=== PATIENT | male | born 1960 | race Caucasian/White ===

== ENCOUNTER 2023-07-13 11:01 | Outpatient (CLI) | payer MEDICARE, SELFPAY ==
[2023-07-13 11:40] LABS: Basophils Percent Auto 0.6 % (0.2-1.2); Eosinophils Absolute Auto 0.1 K/mm3 (0-0.3); Eosinophils Percent Auto 1.6 % (0-4.4); Hemoglobin 16.9 g/dL (14.0-18.0); Immature Granulocyte Absolute 0.03 K/mm3 (0.00-0.031); Immature Granulocyte Percent A 0.4 % (0-0.5); Lymphocytes Absolute Auto 1.15 K/mm3 (0.9-3.2); Lymphocytes Percent Auto 16.5 % (18.3-44.2); Mean Corpuscular HGB Conc 32.5 g/dl (32-36); Mean Corpuscular Hemoglobin 31.2 pg (26-34); Mean Corpuscular Volume 96.1 fl (80-100); Mean Platelet Volume 10.2 fl (7.4-10.4); Monocytes Absolute Auto 0.4 K/mm3 (0.1-0.6); Monocytes Percent Auto 5.9 % (2.6-8.5); Neutrophils Absolute Auto 5.3 K/mm3 (1.3-6.7); Platelet Count Result 176 k/mm3 (150-375); Red Blood Count 5.41 M/mm3 (4.6-6.20); Red Cell Distribution Width 12.1 % (11.5-14.5)
[2023-07-13 12:15] LABS: Alanine Aminotransferase 22 U/L (6-50); Albumin Level 4.9 g/dL (3.5-5.1); Alkaline Phosphatase 85 U/L (38-126); Anion Gap 7 mmol/L (4-12); Aspartate Amino Transferase 34 U/L (17-59); Bilirubin,Total 1.1 mg/dL (0.2-1.3); Blood Urea Nitrogen 23 mg/dL (9-20); Calcium 9.7 mg/dL (8.4-10.2); Carbon Dioxide 29 mmol/L (22-30); Chloride 104 mmol/L (98-107); Estimated Glomerular Filt Rate > 60; Glucose 119 mg/dL (65-110); Potassium 4.1 mmol/L (3.4-5.0); Sodium 140 mmol/L (137-145)
[2023-07-16 11:48] LABS: Erythropoietin (EPO) 4.8 mIU/mL (2.6-18.5)
[2023-07-18 13:42] LABS: Block/Specimen ID Not Given; CALR Exon 9 Mutation Not Detected (Not Detected); CSF3R Exon 14/17 Mutation Not Detected (Not Detected); JAK2 Exon 12 Mutation Not Detected (Not Detected); JAK2 V617F Mutation Not Detected (Not Detected); MPL Exon 10 Mutation Not Detected (Not Detected); Specimen Source Blood
== END 2023-07-13 11:02 | disposition home or self-care (01) ==
PROVIDERS: Visit Provider Internal Medicine Hematology & Oncology
DX: D75.1 Secondary polycythemia (principal)
CPT/HCPCS: 36415; 80053; 81219; 81270; 81279; 81339; 81479; 82668; 85025; 85055

== ENCOUNTER 2023-11-03 13:01 | Outpatient (CLI) | payer MEDICARE, SELFPAY ==
[2023-11-03 13:18] LABS: Basophils Percent Auto 0.6 % (0.2-1.2); Eosinophils Absolute Auto 0.2 K/mm3 (0-0.3); Eosinophils Percent Auto 3.6 % (0-4.4); Hematocrit 46.5 % (42.0-52.0); Hemoglobin 15.7 g/dL (14.0-18.0); Immature Granulocyte Absolute 0.01 K/mm3 (0.00-0.031); Immature Granulocyte Percent A 0.1 % (0-0.5); Lymphocytes Absolute Auto 2.01 K/mm3 (0.9-3.2); Lymphocytes Percent Auto 29.8 % (18.3-44.2); Mean Corpuscular HGB Conc 33.8 g/dl (32-36); Mean Corpuscular Hemoglobin 31.1 pg (26-34); Mean Corpuscular Volume 92.1 fl (80-100); Mean Platelet Volume 8.8 fl (7.4-10.4); Monocytes Absolute Auto 0.5 K/mm3 (0.1-0.6); Monocytes Percent Auto 7.7 % (2.6-8.5); Neutrophils Absolute Auto 3.9 K/mm3 (1.3-6.7); Neutrophils Percent Auto 58.2 % (45.5-73.1); Platelet Count Result 241 k/mm3 (150-375); Red Blood Count 5.05 M/mm3 (4.6-6.20); Red Cell Distribution Width 12.8 % (11.5-14.5); White Blood Count 6.8 K/mm3 (4.5-10.0)
[2023-11-03 13:22] LABS: Blood Urea Nitrogen 20 mg/dL (8-26); Carbon Dioxide 29 mmol/L (22-30); Chloride 102 mmol/L (98-109); Estimated Glomerular Filt Rate > 60; Glucose 92 mg/dL (70-105); Ionized Calcium (POC) 1.12 mmol/L (1.11-1.31); Potassium 3.8 mmol/L (3.5-4.9); Sodium 140 mmol/L (138-146)
== END 2023-11-03 13:02 | disposition home or self-care (01) ==
LOC: ANHLAB 13:03
PROVIDERS: PCP Internal Medicine; Visit Provider Internal Medicine Hematology & Oncology
DX: D75.1 Secondary polycythemia (principal)
CPT/HCPCS: 36415; 80047; 85025

== ENCOUNTER 2024-05-09 15:16 | Outpatient (CLI) | payer MEDICARE, SELFPAY ==
--- OUTSIDE RECORDS SUMMARY | 2024-05-09 15:20 | XMS_ITS | Clinical Summary ---
Author Organization [facility] Nicolette jang [facility] Address [address] [place] [address] Care Team Providers Care Filterer Name Role Phone Joanna Banks MD Primary Care Provider Allergies No known active allergies Medications atorvastatin (LIPITOR) 20 mg tablet Take 20 mg by mouth daily. Active Active Problems No known active problems Encounters Date Type Department Care Team Description 02/07/2024 External Device Data [facility] ABSTRACTION Provider, Abstract from Last 3 Months Family History Medical History Relation Name Comments Diabetes Mother Relation Name Status Comments Father Alive Mother Sister Alive Social History Tobacco Use Types Packs/Day Years Used Date Smoking Tobacco: Never Smokeless Tobacco: Never Alcohol Use Standard Drinks/Week Comments Never 0 (1 standard drink = 0.6 oz pur e alcohol) Sex and Gender Information Value Date Recorded Sex Assigned at Not on file Legal Sex Male 1:01 PM CDT Gender Identity Not on file Sexual Orientation Not on file Last Filed Vital Signs Vital Sign Reading Time Taken Comments Blood Pressure 137/80 11/03/2023 1:23 PM CDT Pulse 70 11/03/2023 1:23 PM CDT Temperature 36.6 ??C (97.8 ??F) 11/03/2023 1:19 PM CD T Respiratory Rate 18 11/03/2023 1:19 PM CDT Oxygen Saturation 97% 11/03/2023 1:19 PM CDT Inhaled Oxygen Concentration - - Weight 64.7 kg (142 lb 9.6 oz) 11/03/2023 1:19 P M CDT Height 170.2 cm (5' 7 ) 07/13/2023 10:08 AM CDT Body Mass Index 22.33 07/13/2023 10:08 AM CDT Plan of Treatment Upcoming Encounters Date Type Department Care Team (Late st Contact Info) Description 05/09/2024 3:30 PM ACCOUNT SERVICES COORDINATOR Office Visit [facility] Oncology and Hematology - [address] [facility] [address] [place] [address] Héctor Mitchell MD [address] [place] [address] Health Maintenance Due Date Last Done Comments DIABETES ANNUAL FOOT EXAM 1976 DIABETES ANNUAL RETINAL EXAM 1976 DIABETES HBA1C Q 6 MONTHS 1976 DIABETES MICROALBUMIN ANNUAL SCREEN 1976 LDL CHOLESTEROL ANNUAL 1976 DTAP/TDAP/TD VACCINES (1 - Tdap) 1977 PNEUMOCOCCAL VACCINE 65+ YEARS (1 of 2 - PCV) 04/24/18 78 COLORECTAL SCREENING 2003 Colorectal Cancer Screening 2003 FIT-DNA Q 3 years 2003 FIT/FOBT Q 1 year 2003 Flex Sig/CT Colonography Q 5 years 2003 ZOSTER VACCINE (1 of 2) 2008 INFLUENZA VACCINE (#1) 2023 [place] Prev entative Visit/Annual Wellness Visit 04/05/2024 RSV VACCINE (60+ or ) (1 - 1-dose 75+ series) 2033 Insurance [id number] [address] [id number] [facility] Address: [facility] [address] [place] [address] Care Teams Filterer Relationship Specialty Start Date End Date Joanna Banks MD PCP - General Internal Medicine 06/16/23
--- OUTSIDE RECORDS SUMMARY | 2024-05-09 15:21 | XMS_ITS | Data Portability ---
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 Specimen sent to pathology. RTC In 10-14 days for suture removal. Patient agreeable. [email or web address] Not available 01/12/2023 12:45:59 01/28/2023 01/28/2023 status post scalp lesion excision. Benign pathology . Sutures removed. Follow up p.r.n. [email or web address] Not available 01/28/2023 10:32:20 06/10/2023 06/10/2023 12/17/2022: PSA 1.11 Not available 06/10/2023 10:26:30 12/21/2023 12/21/2023 12/17/2022: PSA 1.11 11/03/2023: Dr Paula [email or web address] Not available 12/21/2023 10:58:44 04/25/2024 04/25/2024 12/17/2022: PSA 1.11 11/03/2023: Dr Mitchell 04/18/2024: A1C 5.7 Not available 04/25/2024 10:34:11 Plan of Treatment Reminders Order Date Submit Date Provider Last Modified By Organization Details Last Modified Time Details Appointments Any 15 2024 09:45A M Elma hooker MD Not available Not available Not available Lab vitamin D, 25-hydrox y, total, serum [address] (Lab), [address] [place], [address], 06/17/2023 11:31:10 glycohemo globin, total, blood 2023 024 [facility] (Lab), [address] [place], [address], 06/10/2023 14:59:30 microalbu min, urine 2023 024 [facility] (Lab), [address] [place], [address], 06/10/2023 14:22:04 lipid panel, serum 2023 024 [facility] (Lab), [address] [place], [address], 06/10/2023 14:46:27 CBC w/ auto diff 2023 024 [facility] (Lab), [address] [place], [address], 06/10/2023 13:25:16 CMP, serum or plasma 2023 024 [facility] (Lab), [address] [place], [address], 06/10/2023 14:46:33 TSH, serum or plasma 2023 024 [facility] (Lab), [address] [place], [address], 06/10/2023 15:59:48 urinalysi s, complete [address] (Lab), [address] [place], [address], 06/17/2023 11:31:10 vitamin D, 25-hydrox y, total, serum [address] (Lab), [address] [place], [address], 01/12/2024 13:56:21 glycohemo globin, total, blood [address] (Lab), [address] [place], [address], 01/12/2024 13:56:30 microalbu min, urine [address] (Lab), [address] [place], [address], 01/12/2024 13:56:50 noninvasi ve colorecta l cancer DNA + occult blood screening , QL, stool 2023 024 [facility] (Cologuard Orders Only), [address], [address], [place], [address], 01/12/2024 19:52:29 lipid panel, serum [address] (Lab), [address] [place], [address], 01/12/2024 13:55:34 CBC w/ auto diff [address] (Lab), [address] [place], [address], 01/12/2024 13:55:47 CMP, serum or plasma [address] (Lab), [address] [place], [address], 01/12/2024 13:56:01 TSH, serum or plasma [address] (Lab), [address] [place], [address], 01/12/2024 13:56:10 vitamin D, 25-hydrox y, total, serum [address] (Lab), [address] [place], [address], 04/25/2024 11:00:17 glycohemo globin, total, blood [address] (Lab), [address] [place], [address], 04/25/2024 11:00:17 microalbu min, urine [address] (Lab), [address] [place], [address], 04/25/2024 11:00:17 lipid panel, serum [address] (Lab), [address] [place], [address], 04/25/2024 11:00:16 CBC w/ auto diff [address] (Lab), [address] [place], [address], 04/25/2024 11:00:16 CMP, serum or plasma [address] (Lab), [address] [place], [address], 04/25/2024 11:00:16 TSH, serum or plasma [address] ([facility]), [address] [facility] [place], [address], 04/25/2024 11:00:16 Referral diabetic ophthalmo logy referral - Please call patient to schedule. 2024 025 [facility], [address], [place], [address], 04/25/2024 16:50:27 podiatris t referral - Please call patient to schedule. 2024 025 [email or web address] Gerardo Sanchezcamille DPM, [address], [address], [place], [address], 04/25/2024 16:29:23 Procedures None recorded. Surgeries None recorded. Imaging None recorded. Medication Orders None recorded. Patient TargetsNo targets recorded. Patient Instructions Encounter Date Encounter Id Patient Instructions Last Modified By Organization Details Last Modified Time 12/21/2023 [id number] dementia rating scale-2* [email or web address] Not available 12/21/2023 11:18:46 alcohol misuse* [email or web address] Not available 12/21/2023 11:18:57 depression screening* [email or web address] Not available 12/21/2023 11:19:18 multi-dimensiona l health assessment questionnaire* [email or web address] Not available 12/21/2023 11:18:08 advance directiv es: care instructions [email or web address] Not available 12/21/2023 10:53:38 [place] Advance Directives [email or web address] Not available 12/21/2023 10:53:37 advance care planning: care instructions [email or web address] Not available 12/21/2023 10:53:38 Personalized [facility] Plan and Screening Recommendations Advance Directives - Do you have one? No You have indicated that you are capable of preparing your advance care directive Advance Directives - Do we have your advance directive on file in your health record? Primary Prevention/Interven tion (prevents or decreases the chance of common diseases from occurring) Smoking Risk: Non Smoker Alcohol Misuse Screening: Negative Weight: Appropriate Physical activity: Need more exercise/physical activity minimum of 10-20 minutes of activity that causes mild breathlessness/day minimum of 20-30 minutes activity that causes mild breathlessness/day Nutrition: Good Average Refer to attached handout Heart-Healthy Diet: After Your Visit Fall Risk (screened today): Low Refer to attached handout Preventing Falls: After your Visit Vaccines Pneumococcal: Ordered Recommended today Influenza: Your next one in the fall of this year Chronic Disease Risks Stroke: Low Risk Intermediate Risk Heart Attack: Low risk Intermediate Risk Clogging of the Arteries: Low risk Intermediate Risk Diabetes: High Risk Active diagnosis, Continue current treatment plan Secondary Prevention/Interven tion (detects treatable diseases before they may cause symptoms, disability, or ) Prostate Cancer Screening: Colon Cancer Screening: Colonoscopy Fecal Occult Blood Cologuard (DNA stool test) Date Screening Last Performed: 2020 Eye Disease Screening: Ordered Recommended today Dementia Risk: Low I have no recommendations Depression Screening: Negative [email or web address] Not available 12/21/2023 11:21:17 Reason for Referral Diabetic Ophthalmology Refer ral for Prediabetes Please call patient to schedule. Referring Physician: Elma Banks Internal Medicine, Encounter Date: 04/25/2024 [place] [employer] Referral for Pred iabetes Please call patient to schedule. Referring Physician: Elma Banks Internal Medicine, Encounter Date: 04/25/2024 Results Created Date Observation Date Name Description Value Unit Range Abnormal Flag Note LastModifiedBy Organization Detail LastModifiedTime 12/18/1912/17/2022 CBC/C OMPLE TE BLD COUNT W/DIF F white blood cells 6.5 x10'3 /uL 4.2-10 .8 Not Available [facility] (Lab) [address] [place], [address], 12/17/2022 12:31:23 12/18/19 23 12/17/2022 CBC/C OMPLE TE BLD COUNT W/DIF F red blood cells 5.30 x10'6 /uL 4.10-5 .80 Not Available [facility] (Lab) [address] [place], [address], 12/17/2022 12:31:23 09/12/17/2022 CBC/C OMPLE TE BLD COUNT W/DIF F hemoglobin 16.6 g/dL 13.2-1 7.0 Not Available [facility] (Lab) [address] [place], [address], 12/17/2022 12:31:23 12/18/19 23 12/17/2022 CBC/C OMPLE TE BLD COUNT W/DIF F hematocrit 48.6 % 39.3-5 0.0 Not Available [facility] (Lab) [address] [place], [address], 12/17/2022 12:31:23 12/18/1912/17/2022 CBC/C OMPLE TE BLD COUNT W/DIF F mean red cell volume 91.7 fL 80.0-9 7.0 Not Available [facility] (Lab) [address] [place], [address], 12/17/2022 12:31:23 12/18/1912/17/2022 CBC/C OMPLE TE BLD COUNT W/DIF F mean red cell hemoglobin 31.3 pg 27.0-3 3.0 Not Available [facility] (Lab) [address] [place], [address], 12/17/2022 12:31:23 12/18/1912/17/2022 CBC/C OMPLE TE BLD COUNT W/DIF F mean RBC HGB concentratio n 34.2 g/dL 31.0-3 6.0 Not Available [facility] (Lab) [address] [place], [address], 12/17/2022 12:31:23 12/18/1912/17/2022 CBC/C OMPLE TE BLD COUNT W/DIF F red cell distribution width 12.3 % 11.8-1 5.5 Not Available [facility] (Lab) [address] [place], [address], 12/17/2022 12:31:23 12/18/1912/17/2022 CBC/C OMPLE TE BLD COUNT W/DIF F platelets 259 x10'3 /uL 150-40 0 Not Available [facility] (Lab) [address] [place], [address], 12/17/2022 12:31:23 12/18/1912/17/2022 CBC/C OMPLE TE BLD COUNT W/DIF F mean platelet volume 9.9 fL 9.0-12 .4 Not Available [facility] (Lab) [address] [place], [address], 12/17/2022 12:31:23 12/18/1912/17/2022 CBC/C OMPLE TE BLD COUNT W/DIF F neutrophils 70.1 % 39.0-7 2.0 Not Available [facility] (Lab) [address] [place], [address], 12/17/2022 12:31:23 12/18/1912/17/2022 CBC/C OMPLE TE BLD COUNT W/DIF F lymphocytes 20.5 % 16.0-4 7.0 Not Available [facility] (Lab) [address] [place], [address], 12/17/2022 12:31:23 12/18/1912/17/2022 CBC/C OMPLE TE BLD COUNT W/DIF F monocytes 6.7 % 5.0-12 .0 Not Available [facility] (Lab) [address] [place], [address], 12/17/2022 12:31:23 12/18/1912/17/2022 CBC/C OMPLE TE BLD COUNT W/DIF F eosinophils 2.2 % 1.0-7. 0 Not Available [facility] (Lab) [address] [place], [address], 12/17/2022 12:31:23 12/18/1912/17/2022 CBC/C OMPLE TE BLD COUNT W/DIF F basophils 0.3 % 0.0-2. 0 Not Available [facility] (Lab) [address] [facility], [address], 12/17/2022 12:31:23 12/18/1912/17/2022 CBC/C OMPLE TE BLD COUNT W/DIF F immature granulocytes 0.2 % 0.00-0 .50 Not Available [facility] (Lab) [address] [place], [address], 12/17/2022 12:31:23 12/18/1912/17/2022 CBC/C OMPLE TE BLD COUNT W/DIF F neutrophils, absolute count 4.53 x10'3 /uL 1.5-8. 0 Not Available [facility] (Lab) [address] [place], [address], 12/17/2022 12:31:23 12/18/1912/17/2022 CBC/C OMPLE TE BLD COUNT W/DIF F lymphocytes, absolute count 1.32 x10'3 /uL 1.07-3 .43 Not Available [facility] (Lab) [address] [place], [address], 12/17/2022 12:31:23 12/18/1912/17/2022 CBC/C OMPLE TE BLD COUNT W/DIF F monocytes, absolute count 0.43 x10'3 /uL 0.29-0 .99 Not Available [facility] (Lab) [address] [place], [address], 12/17/2022 12:31:23 12/18/1912/17/2022 CBC/C OMPLE TE BLD COUNT W/DIF F eosinophils, absolute count 0.14 x10'3 /uL 0.02-0 .53 Not Available [facility] (Lab) [address] [place], [address], 12/17/2022 12:31:23 12/18/19 23 12/17/2022 CBC/C OMPLE TE BLD COUNT W/DIF F basophils, absolute count 0.02 x10'3 /uL 0.01-0 .08 Not Available [facility] (Lab) [address] [place], [address], 12/17/2022 12:31:23 12/18/19 23 12/17/2022 CBC/C OMPLE TE BLD COUNT W/DIF F immature granulocytes ,absolute 0.01 x10'3 /uL 0.00-0 .05 Not Available [facility] (Lab) [address] [place], [address], 12/17/2022 12:31:23 12/18/19 23 12/17/2022 CBC/C OMPLE TE BLD COUNT W/DIF F nucleated red blood cells 0.0 % -0 Not Available [facility] (Lab) [address] [place], [address], 12/17/2022 12:31:23 12/18/19 23 12/17/2022 CBC/C OMPLE TE BLD COUNT W/DIF F NRBC# 0.00 x10'3 /uL Not Available [facility] (Lab) [address] [place], [address], 12/17/2022 12:31:23 12/18/1912/17/2022 COMPR EHENS RADHA METAB OLIC PANEL sodium 139 mmol/ L 137-14 5 Not Available [facility] (Lab) [address] [place], [address], 12/17/2022 12:59:17 12/18/19 23 12/17/2022 COMPR EHENS RADHA METAB OLIC PANEL potassium 4.3 mmol/ L 3.5-5. 1 Not Available [facility] (Lab) [address] [place], [address], 12/17/2022 12:59:17 12/18/1912/17/2022 COMPR EHENS RADHA METAB OLIC PANEL chloride 102 mmol/ L 98-107 Not Available [facility] (Lab) [address] [place], [address], 12/17/2022 12:59:17 12/18/19 23 12/17/2022 COMPR EHENS RADHA METAB OLIC PANEL carbon dioxide 28 mmol/ L 22-30 Not Available [facility] (Lab) [address] [place], [address], 12/17/2022 12:59:17 12/18/1912/17/2022 COMPR EHENS RADHA METAB OLIC PANEL anion gap 13.3 mmol/ L 14-22 low Not Available [facility] (Lab) [address] [place], [address], 12/17/2022 12:59:17 12/18/1912/17/2022 COMPR EHENS RADHA METAB OLIC PANEL glucose 115 mg/dL 70-99 high Not Available [facility] (Lab) [address] [place], [address], 12/17/2022 12:59:17 12/18/1912/17/2022 COMPR EHENS RADHA METAB OLIC PANEL BUN 20 mg/dL 8-19 high Not Available [facility] (Lab) [address] [place], [address], 12/17/2022 12:59:17 12/18/1912/17/2022 COMPR EHENS RADHA METAB OLIC PANEL creatinine 0.95 mg/dL 0.66-1 .25 Not Available [facility] (Lab) [address] [place], [address], 12/17/2022 12:59:17 12/18/19 23 12/17/2022 COMPR EHENS RADHA METAB OLIC PANEL GFR >60 Refer ence Range : [place] ge GFR Healt hy Adult : >60 mL/mi n/1.7 3 m2 Chron ic Kidne y Disea se: 15-60 mL/mi n/1.7 3 m2 Kidne y Failu re: <15/m L/min /1.73 m2 www.n iddk. nih.g ov The MDRD study equat ion has not been valid ated in child claudia <18 years of age; pregn ant women ; the elder ly >85 years of age; or in some racia l or ethni c subgr oups, such as Hispa nics. Outsi de the valid ated kelly eters , estim ated GFR is less accur ate, requi ring clini chacha judgm ent on a case- by-ca se basis . Clini chacha inter preta tion for other races and ages must be made by the clini darwin. The MDRD study equat ion has not been valid ated for the evalu ation of serum creat inine relat ed to nutri bernarda l statu s or medic ation usage . For perso ns <18 years of age, a pedia tric GFR calcu lator is avail able on the [facility] websi te: https ://anival rondon.[address]/diomedes coleyess ional s/kdo qi/gf r_cal culat or Not Available [facility] (Lab) [address] [place], [address], 12/17/2022 12:59:17 12/18/1912/17/2022 COMPR EHENS RADHA METAB OLIC PANEL alkaline phosphatase 84 U/L 38-126 Not Available [facility] (Lab) [address] [place], [address], 12/17/2022 12:59:17 12/18/1912/17/2022 COMPR EHENS RADHA METAB OLIC PANEL alanine aminotransfe rase 32 U/L 0-50 Not Available [facility] (Lab) [address] [place], [address], 12/17/2022 12:59:17 12/18/19 23 12/17/2022 COMPR EHENS RADHA METAB OLIC PANEL aspartate aminotransfe rase 35 U/L 15-46 Not Available [facility] (Lab) [address] [place], [address], 12/17/2022 12:59:17 12/18/19 23 12/17/2022 COMPR EHENS RADHA METAB OLIC PANEL bilirubin, total 1.00 mg/dL 0.20-1 .30 Not Available [facility] (Lab) [address] [place], [address], 12/17/2022 12:59:17 12/18/1912/17/2022 COMPR EHENS RADHA METAB OLIC PANEL calcium 9.7 mg/dL 8.4-10 .2 Not Available [facility] (Lab) [address] [place], [address], 12/17/2022 12:59:17 12/18/19 23 12/17/2022 COMPR EHENS RADHA METAB OLIC PANEL total protein 7.8 g/dL 6.3-8. 2 Not Available [facility] (Lab) [address] [place], [address], 12/17/2022 12:59:17 12/18/1912/17/2022 COMPR EHENS RADHA METAB OLIC PANEL albumin 4.7 g/dL 3.0-4. 4 high Not Available [facility] (Lab) [address] [place], [address], 12/17/2022 12:59:17 12/18/1912/17/2022 COMPR EHENS RADHA METAB OLIC PANEL globulin 3.1 g/dL 2.6-4. 2 Not Available [facility] (Lab) [address] [place], [address], 12/17/2022 12:59:17 12/18/1926 1212/17/2022 COMPR EHENS RADHA METAB OLIC PANEL A/G ratio 1.5 ratio 1.0-2. 0 Not Available [facility] (Lab) [address] [place] [address], [address], 12/17/2022 12:59:17 12/18/19 23 12/17/2022 LIPID PANEL cholesterol 155 mg/dL 140-19 9 NIH CARRIE NSUS RECOM MENDA TION FOR MARCY STERO L: ADULT CHILD LOW RISK: <200 <170 BORDE RLINE : <200- 239 ----- HIGH RISK: >240 >200 Not Available [facility] (Lab) [address] [place] [address], [address], 12/17/2022 12:59:22 12/18/19 23 12/17/2022 LIPID PANEL triglyceride s 70 mg/dL 0-150 NIH CARRIE NSUS REPOR T RECOM MENDA TION FOR TRIGL YCERI MITZI: ADULT CHILD LOW RISK: <150 ----- BODER LINE: 150-1 99 ----- HIGH RISK: >200 ----- Not Available [facility] (Lab) [address] [place] [address], [address], 12/17/2022 12:59:22 12/18/19 23 12/17/2022 LIPID PANEL HDL cholesterol 63 mg/dL 40- Not Available [facility] (Lab) [address] [place] [address], [address], 12/17/2022 12:59:22 12/18/19 23 12/17/2022 LIPID PANEL LDL cholesterol, calculated 78 mg/dL 0-130 NIH CARRIE NSUS REPOR T RECOM MENDA TIONS FOR LDL: ADULT CHILD LOW RISK <130 <110 (OPTI MAL LDL) <100 ----- BORDE RLINE : 130-1 59 ----- HIGH RISK: >160 >130 A TRIGL YCERI DE RESUL T >400 INVAL IDATE S THE CALCU LATIO N FOR LDL FRACT IONAT ION - THE LDL RESUL T WILL NOT BE REPOR KARL. Not Available [facility] (Lab) [address] [place], [address], 12/17/2022 12:59:22 12/18/1912/17/2022 TSH W/REF NISHA FT4 TSH with reflex free T4 2.700 uIU/m L 0.465- 4.680 Not Available [facility] (Lab) [address] [place], [address], 12/17/2022 13:19:29 12/18/1912/17/2022 PSA SCREE N PSA medicare screen 1.11 NG/mL 0.00-4 .00 Not Available [facility] (Lab) [address] [place], [address], 12/17/2022 13:19:45 12/18/19 23 12/17/2022 VITAM IN D 25-HY DROXY [id number] 34.8 NG/mL 30-100 Vitam in D Statu s: Defic ient: <20 ng/mL Insuf ficie nt: 20-29 ng/mL Suffi cient : 30-10 0 ng/mL Not Available [facility] (Lab) [address] [place], [address], 12/17/2022 13:34:46 12/18/19 23 12/17/2022 HEMOG LOBIN A1C HA1C 5.6 % 4.0-6. 0 Diabe rachel Scree héctor Crite sukhi: <5.7% Consi stent with absen ce of diabe rachel 5.7-6 .4% Consi stent with incre ased risk for diabe rachel (pred iabet es) >OR=6 .5% Consi stent with diabe rachel REFER ENCE: Diabe rachel Care 2016, 39([place] ppl.1 ):s13 -s22 Not Available [facility] (Lab) [address] [place], [address], 12/17/2022 14:30:40 06/10/19 24 06/10/2023 CBC/C OMPLE TE BLD COUNT W/DIF F white blood cells 5.8 x10'3 /uL 4.2-10 .8 Not Available [facility] (Lab) [address] [place], [address], 06/10/2023 13:25:16 06/10/19 24 06/10/2023 CBC/C OMPLE TE BLD COUNT W/DIF F red blood cells 5.46 x10'6 /uL 4.10-5 .80 Not Available [facility] (Lab) [address] [place], [address], 06/10/2023 13:25:16 06/10/19 24 06/10/2023 CBC/C OMPLE TE BLD COUNT W/DIF F hemoglobin 17.2 g/dL 13.2-1 7.0 high Not Available [facility] (Lab) [address] [place], [address], 06/10/2023 13:25:16 06/10/19 24 06/10/2023 CBC/C OMPLE TE BLD COUNT W/DIF F hematocrit 51.0 % 39.3-5 0.0 high Not Available [facility] (Lab) [address] [place], [address], 06/10/2023 13:25:16 06/10/19 24 06/10/2023 CBC/C OMPLE TE BLD COUNT W/DIF F mean red cell volume 93.4 fL 80.0-9 7.0 Not Available [facility] (Lab) [address] [place], [address], 06/10/2023 13:25:16 06/10/19 24 06/10/2023 CBC/C OMPLE TE BLD COUNT W/DIF F mean red cell hemoglobin 31.5 pg 27.0-3 3.0 Not Available [facility] (Lab) [address] [place], [address], 06/10/2023 13:25:16 06/10/19 24 06/10/2023 CBC/C OMPLE TE BLD COUNT W/DIF F mean RBC HGB concentratio n 33.7 g/dL 31.0-3 6.0 Not Available [facility] (Lab) [address] [place], [address], 06/10/2023 13:25:16 06/10/19 24 06/10/2023 CBC/C OMPLE TE BLD COUNT W/DIF F red cell distribution width 12.5 % 11.8-1 5.5 Not Available [facility] (Lab) [address] [place], [address], 06/10/2023 13:25:16 06/10/19 24 06/10/2023 CBC/C OMPLE TE BLD COUNT W/DIF F platelets 264 x10'3 /uL 150-40 0 Not Available [facility] (Lab) [address] [place], [address], 06/10/2023 13:25:16 06/10/19 24 06/10/2023 CBC/C OMPLE TE BLD COUNT W/DIF F mean platelet volume 10.0 fL 9.0-12 .4 Not Available [facility] (Lab) [address] [place], [address], 06/10/2023 13:25:16 06/10/19 24 06/10/2023 CBC/C OMPLE TE BLD COUNT W/DIF F neutrophils 66.9 % 39.0-7 2.0 Not Available [facility] (Lab) [address] [place], [address], 06/10/2023 13:25:16 06/10/19 24 06/10/2023 CBC/C OMPLE TE BLD COUNT W/DIF F lymphocytes 23.7 % 16.0-4 7.0 Not Available [facility] (Lab) [address] [place], [address], 06/10/2023 13:25:16 06/10/19 24 06/10/2023 CBC/C OMPLE TE BLD COUNT W/DIF F monocytes 6.4 % 5.0-12 .0 Not Available [facility] (Lab) [address] [place], [address], 06/10/2023 13:25:16 06/10/19 24 06/10/2023 CBC/C OMPLE TE BLD COUNT W/DIF F eosinophils 2.3 % 1.0-7. 0 Not Available [facility] (Lab) [address] [place], [address], 06/10/2023 13:25:16 06/10/19 24 06/10/2023 CBC/C OMPLE TE BLD COUNT W/DIF F basophils 0.5 % 0.0-2. 0 Not Available [facility] (Lab) [address] [place], [address], 06/10/2023 13:25:16 06/10/19 24 06/10/2023 CBC/C OMPLE TE BLD COUNT W/DIF F immature granulocytes 0.2 % 0.00-0 .50 Not Available [facility] (Lab) [address] [place], [address], 06/10/2023 13:25:16 06/10/19 24 06/10/2023 CBC/C OMPLE TE BLD COUNT W/DIF F neutrophils, absolute count 3.85 x10'3 /uL 1.5-8. 0 Not Available [facility] (Lab) [address] [place], [address], 06/10/2023 13:25:16 06/10/19 24 06/10/2023 CBC/C OMPLE TE BLD COUNT W/DIF F lymphocytes, absolute count 1.36 x10'3 /uL 1.07-3 .43 Not Available [facility] (Lab) [address] [place], [address], 06/10/2023 13:25:16 06/10/19 24 06/10/2023 CBC/C OMPLE TE BLD COUNT W/DIF F monocytes, absolute count 0.37 x10'3 /uL 0.29-0 .99 Not Available [facility] (Lab) [address] [place], [address], 06/10/2023 13:25:16 06/10/19 24 06/10/2023 CBC/C OMPLE TE BLD COUNT W/DIF F eosinophils, absolute count 0.13 x10'3 /uL 0.02-0 .53 Not Available [facility] (Lab) [address] [place], [address], 06/10/2023 13:25:16 06/10/19 24 06/10/2023 CBC/C OMPLE TE BLD COUNT W/DIF F basophils, absolute count 0.03 x10'3 /uL 0.01-0 .08 Not Available [facility] (Lab) [address] [place], [address], 06/10/2023 13:25:16 06/10/19 24 06/10/2023 CBC/C OMPLE TE BLD COUNT W/DIF F immature granulocytes ,absolute 0.01 x10'3 /uL 0.00-0 .05 Not Available [facility] (Lab) [address] [place], [address], 06/10/2023 13:25:16 06/10/19 24 06/10/2023 CBC/C OMPLE TE BLD COUNT W/DIF F nucleated red blood cells 0.0 % -0 Not Available [facility] (Lab) [address] [place], [address], 06/10/2023 13:25:16 06/10/19 24 06/10/2023 CBC/C OMPLE TE BLD COUNT W/DIF F NRBC# 0.00 x10'3 /uL Not Available [facility] (Lab) [address] [place], [address], 06/10/2023 13:25:16 06/10/19 24 06/10/2023 URINA LYSIS COMPL ETE, IRIS color YELLOW Not Available [facility] (Lab) [address] [place], [address], 06/10/2023 13:27:03 06/10/19 24 06/10/2023 URINA LYSIS COMPL ETE, IRIS appear CLEAR Not Available [facility] (Lab) [address] [place], [address], 06/10/2023 13:27:03 06/10/19 24 06/10/2023 URINA LYSIS COMPL ETE, IRIS specific gravity 1.021 1.001- 1.030 Not Available [facility] (Lab) [address] [place], [address], 06/10/2023 13:27:03 06/10/19 24 06/10/2023 URINA LYSIS COMPL ETE, IRIS pH 6.5 pH_un its 5.0-9. 0 Not Available [facility] (Lab) [address] [place], [address], 06/10/2023 13:27:03 06/10/19 24 06/10/2023 URINA LYSIS COMPL ETE, IRIS leukocytes NEGATI VE dariusz/u L negati ve- Not Available [facility] (Lab) [address] [place], [address], 06/10/2023 13:27:03 06/10/19 24 06/10/2023 URINA LYSIS COMPL ETE, IRIS nitrite NEGATI VE negati ve- Not Available [facility] (Lab) [address] [place], [address], 06/10/2023 13:27:03 06/10/19 24 06/10/2023 URINA LYSIS COMPL ETE, IRIS protein NEGATI VE mg/dL negati ve- Not Available [facility] (Lab) [address] [place], [address], 06/10/2023 13:27:03 06/10/19 24 06/10/2023 URINA LYSIS COMPL ETE, IRIS glucose NORMAL mg/dL normal - Not Available [facility] (Lab) [address] [place], [address], 06/10/2023 13:27:03 06/10/19 24 06/10/2023 URINA LYSIS COMPL ETE, IRIS ketones NEGATI VE mg/dL negati ve- Not Available [facility] (Lab) [address] [place], [address], 06/10/2023 13:27:03 06/10/19 24 06/10/2023 URINA LYSIS COMPL ETE, IRIS urobilinogen NORMAL mg/dL normal - Not Available [facility] (Lab) [address] [place], [address], 06/10/2023 13:27:03 06/10/19 24 06/10/2023 URINA LYSIS COMPL ETE, IRIS bilirubin NEGATI VE mg/dL negati ve- Not Available [facility] (Lab) [address] [place], [address], 06/10/2023 13:27:03 06/10/19 24 06/10/2023 URINA LYSIS COMPL ETE, IRIS blood NEGATI VE mg/dL negati ve- Not Available [facility] (Lab) [address] [place], [address], 06/10/2023 13:27:03 06/10/19 24 06/10/2023 URINA LYSIS COMPL ETE, IRIS white blood cells 0-8 /i??h pfi?? 0-8 Not Available [facility] (Lab) [address] [place], [address], 06/10/2023 13:27:03 06/10/19 24 06/10/2023 URINA LYSIS COMPL ETE, IRIS red blood cells 0-4 /i??h pfi?? 0-4 Not Available [facility] (Lab) [address] [place], [address], 06/10/2023 13:27:03 06/10/19 24 06/10/2023 URINA LYSIS COMPL ETE, IRIS bacteria NONE Not Available [facility] (Lab) [address] [place], [address], 06/10/2023 13:27:03 06/10/19 24 06/10/2023 URINA LYSIS COMPL ETE, IRIS mucous OCCASI ONAL /i??l pfi?? abnormal Not Available [facility] (Lab) [address] [place], [address], 06/10/2023 13:27:03 06/10/19 24 06/10/2023 URINA LYSIS COMPL ETE, IRIS squamous epithelial NONE /i??l pfi?? abnormal Not Available [facility] (Lab) [address] [place], [address], 06/10/2023 13:27:03 06/10/19 24 06/10/2023 MICRO ALBUM IN RANDO M URINE microalbumin , urine 9.0 mg/L 0.0-16 .6 Not Available [facility] (Lab) [address] [place], [address], 06/10/2023 14:22:04 06/10/19 24 06/10/2023 LIPID PANEL cholesterol 138 mg/dL 140-19 9 low NIH CARRIE NSUS RECOM MENDA TION FOR MARCY STERO L: ADULT CHILD LOW RISK: <200 <170 BORDE RLINE : <200- 239 ----- HIGH RISK: >240 >200 Not Available [facility] (Lab) [address] [place], [address], 06/10/2023 14:46:27 06/10/19 24 06/10/2023 LIPID PANEL triglyceride s 75 mg/dL 0-150 NIH CARRIE NSUS REPOR T RECOM MENDA TION FOR TRIGL YCERI MITZI: ADULT CHILD LOW RISK: <150 ----- BODER LINE: 150-1 99 ----- HIGH RISK: >200 ----- Not Available [facility] (Lab) [address] [place], [address], 06/10/2023 14:46:27 06/10/19 24 06/10/2023 LIPID PANEL HDL cholesterol 60 mg/dL 40- Not Available [facility] (Lab) [address] [place], [address], 06/10/2023 14:46:27 06/10/19 24 06/10/2023 LIPID PANEL LDL cholesterol, calculated 63 mg/dL 0-130 NIH CARRIE NSUS REPOR T RECOM MENDA TIONS FOR LDL: ADULT CHILD LOW RISK <130 <110 (OPTI MAL LDL) <100 ----- RUSHDE RLINE : 130-1 59 ----- HIGH RISK: >160 >130 A TRIGL YCERI DE RESUL T >400 INVAL IDATE S THE CALCU LATIO N FOR LDL FRACT IONAT ION - THE LDL RESUL T WILL NOT BE REPOR KARL. Not Available [facility] (Lab) [address] [place], [address], 06/10/2023 14:46:27 06/10/19 24 06/10/2023 COMPR EHENS RADHA METAB OLIC PANEL sodium 139 mmol/ L 137-14 5 Not Available [facility] (Lab) [address] [place], [address], 06/10/2023 14:46:33 06/10/19 24 06/10/2023 COMPR EHENS RADHA METAB OLIC PANEL potassium 4.0 mmol/ L 3.5-5. 1 Not Available [facility] (Lab) [address] [place], [address], 06/10/2023 14:46:33 06/10/19 24 06/10/2023 COMPR EHENS RADHA METAB OLIC PANEL chloride 102 mmol/ L 98-107 Not Available [facility] (Lab) [address] [place], [address], 06/10/2023 14:46:33 06/10/19 24 06/10/2023 COMPR EHENS RADHA METAB OLIC PANEL carbon dioxide 29 mmol/ L 22-30 Not Available [facility] (Lab) [address] [place], [address], 06/10/2023 14:46:33 06/10/19 24 06/10/2023 COMPR EHENS RADHA METAB OLIC PANEL anion gap 12.0 mmol/ L 14-22 low Not Available [facility] (Lab) [address] [place], [address], 06/10/2023 14:46:33 06/10/19 24 06/10/2023 COMPR EHENS RADHA METAB OLIC PANEL glucose 106 mg/dL 70-99 high Not Available [facility] (Lab) [address] [place], [address], 06/10/2023 14:46:33 06/10/19 24 06/10/2023 COMPR EHENS RADHA METAB OLIC PANEL BUN 17 mg/dL 8-19 Not Available [facility] (Lab) [address] [place], [address], 06/10/2023 14:46:33 06/10/19 24 06/10/2023 COMPR EHENS RADHA METAB OLIC PANEL creatinine 0.94 mg/dL 0.66-1 .25 Not Available [facility] (Lab) [address] [place], [address], 06/10/2023 14:46:33 06/10/19 24 06/10/2023 COMPR EHENS RADHA METAB OLIC PANEL GFR >60 Refer ence Range : [place] ge GFR Healt hy Adult : >60 mL/mi n/1.7 3 m2 Chron ic Kidne y Disea se: 15-60 mL/mi n/1.7 3 m2 Kidne y Failu re: <15/m L/min /1.73 m2 www.n iddk. nih.g ov The MDRD study equat ion has not been valid ated in child claudia <18 years of age; pregn ant women ; the elder ly >85 years of age; or in some racia l or ethni c subgr oups, such as Hispa nics. Outsi de the valid ated kelly eters , estim ated GFR is less accur ate, requi ring clini chacha judgm ent on a case- by-ca se basis . Clini chacha inter preta tion for other races and ages must be made by the clini darwin. The MDRD study equat ion has not been valid ated for the evalu ation of serum creat inine relat ed to nutri bernarda l statu s or medic ation usage . For perso ns <18 years of age, a pedia tric GFR calcu lator is avail able on the [facility] websi te: https ://anival rondon.[address]/diomedes hemphill s/marianao qi/gf r_cal culat or Not Available [facility] (Lab) [address] [place], [address], 06/10/2023 14:46:33 06/10/19 24 06/10/2023 COMPR EHENS RADHA METAB OLIC PANEL alkaline phosphatase 83 U/L 38-126 Not Available [facility] (Lab) [address] [place], [address], 06/10/2023 14:46:33 06/10/19 24 06/10/2023 COMPR EHENS RADHA METAB OLIC PANEL alanine aminotransfe rase 24 U/L 0-50 Not Available [facility] (Lab) [address] [place], [address], 06/10/2023 14:46:33 06/10/19 24 06/10/2023 COMPR EHENS RADHA METAB OLIC PANEL aspartate aminotransfe rase 33 U/L 15-46 Not Available [facility] (Lab) [address] [place], [address], 06/10/2023 14:46:33 06/10/19 24 06/10/2023 COMPR EHENS RADHA METAB OLIC PANEL bilirubin, total 1.40 mg/dL 0.20-1 .30 high Not Available [facility] (Lab) [address] [place], [address], 06/10/2023 14:46:33 06/10/19 24 06/10/2023 COMPR EHENS RADHA METAB OLIC PANEL calcium 9.6 mg/dL 8.4-10 .2 Not Available [facility] (Lab) [address] [place], [address], 06/10/2023 14:46:33 06/10/19 24 06/10/2023 COMPR EHENS RADHA METAB OLIC PANEL total protein 7.8 g/dL 6.3-8. 2 Not Available [facility] (Lab) [address] [place], [address], 06/10/2023 14:46:33 06/10/19 24 06/10/2023 COMPR EHENS RADHA METAB OLIC PANEL albumin 4.6 g/dL 3.0-4. 4 high Not Available [facility] (Lab) [address] [place], [address], 06/10/2023 14:46:33 06/10/19 24 06/10/2023 COMPR EHENS RADHA METAB OLIC PANEL globulin 3.2 g/dL 2.6-4. 2 Not Available [facility] (Lab) [address] [place], [address], 06/10/2023 14:46:33 06/10/19 24 06/10/2023 COMPR EHENS RADHA METAB OLIC PANEL A/G ratio 1.4 ratio 1.0-2. 0 Not Available [facility] (Lab) [address] [place], [address], 06/10/2023 14:46:33 06/10/19 24 06/10/2023 HEMOG LOBIN A1C HA1C 5.5 % 4.0-6. 0 Diabe rachel Scree héctor Crite sukhi: <5.7% Consi stent with absen ce of diabe rachel 5.7-6 .4% Consi stent with incre ased risk for diabe rachel (pred iabet es) >OR=6 .5% Consi stent with diabe rachel REFER ENCE: Diabe rachel Care 2016, 39([place] ppl.1 ):s13 -s22 Not Available [facility] (Lab) [address] [place], [address], 06/10/2023 14:59:30 06/10/19 24 06/10/2023 VITAM IN D 25-HY DROXY vd25oh 30.7 NG/mL 30-100 Vitam in D Statu s: Defic ient: <20 ng/mL Insuf ficie nt: 20-29 ng/mL Suffi cient : 30-10 0 ng/mL Not Available [facility] (Lab) [address] [place], [address], 06/10/2023 15:49:54 06/10/19 24 06/10/2023 TSH W/REF NISHA FT4 TSH with reflex free T4 2.380 uIU/m L 0.465- 4.680 Not Available [facility] (Lab) [address] [place], [address], 06/10/2023 15:59:47 09/21/19 24 09/21/2023 RAPID STREP A DNA strep A DNA, MICHELLE NEGATI VE negati ve Not Available [facility] (Lab) [address] [place], [address], 09/21/2023 10:52:43 09/21/19 24 09/21/2023 COVID -19, INFLU MICHELINE A+B, PCR sars-cov-2 RNA(covid19) ,RT-PCR POSITI VE abnormal This test has been autho rized by the FDA under an Emerg ency Use Autho rizat ion (EUA) for use by autho rized labor atori es. Negat radha resul ts do not precl ude SARS- CoV-2 and shoul d not be used as the sole basis for treat ment or other patie nt manag ement decis ions. Test resul ts shoul d be corre lated with the clini chacha histo ry, epide miolo gical data, and other data avail able to the clini darwin evalu ating the patie nt. Juanita newton w the Fact Sheet s for healt h care provi ders and patie nts at the [facility] rachel: https ://ww w.fda .gov/ media /1363 12/do wnloa d https ://ww w.fda .gov/ media /1363 13/do wnloa d Metho dolog y: Real- Time RT-PC R Not Available [facility] (Lab) [address] [place], [address], 09/21/2023 11:03:00 09/21/19 24 09/21/2023 COVID -19, INFLU MICHELINE A+B, PCR influenza A RNA, RT-PCR NEGATI VE Not Available [facility] (Lab) [address] [place], [address], 09/21/2023 11:03:00 09/21/19 24 09/21/2023 COVID -19, INFLU MICHELINE A+B, PCR influenza B RNA, RT-PCR NEGATI VE abnormal Not Available [facility] (Lab) [address] [place], [address], 09/21/2023 11:03:00 01/07/20 24 01/07/2024 COLOG UARD cologuard result reportable NEGATI VE negati ve normal NEGAT RADHA TEST RESUL T. A negat radha Colog uard resul t indic ates a low likel ihood that a color ectal cance r (CRC) or advan albino adeno ma (sunny omato us polyp s with more advan albino pre-m align ant featu res) is prese nt. The chanc e that a perso n with a negat radha Colog uard test has a color ectal cance r is less than 1 in 1500 (nega tive predi ctive value >99.9 %) or has an advan albino adeno ma is less than 5.3% (nega tive predi ctive value 94.7% ). These data are based on a prosp ectiv e cross -sect ional study of ,00 0 indiv idual s at [place] [facility] risk for color ectal cance r who were scree rj with both Colog uard and colon oscop y. (Balaji Mohamud et al, N Engl J Med 2014; 370(1 4):12 86-12 97) The [place] l value (refe rence range ) for this assay is negat radha. COLOG UARD RE-SC REEKELLIE NG RECOM MENDA TION: Perio dic color ectal cance r scree héctor is an impor tant part of preve ntive healt hcare for asymp tomat ic indiv idual s at [place] risk for color ectal cance r. Follo wing a negat radha Colog uard resul t, the Ameri can Cance r Socie ty and U.S. Multi -Soci ety Task Force scree héctor guide lines recom mend a Colog uard re-sc reeni ng inter marco a of 3 years . Refer ences : Ameri can Cance r Socie ty Guide line for Color ectal Cance r Scree héctor: https ://anival w.can cer.o rg/ca ncer/ colon -rect al-ca ncer/ detec tion- diagn osis- stagi ng/ac s-rec ommen datio ns.angelito ml.; Andrew SANCHEZ, Navneet BROWNE, Domin meli JK, Color ectal Cance r Scree héctor: Recom menda tions for Physi cians and Patie nts from the U.S. Multi -Soci ety Task Force on Color ectal Cance r Scree héctorGriselda early y 2017; 112:1 016-1 030. TEST DESCR IPTIO N: [place] site algor ithmi c katherine sis of stool DNA-b iomar kers with hemog lobin immun oassa y. Quant itati ve value s of indiv idual bioma rkers are not repor table and are not assoc iated with indiv idual bioma rker resul t refer ence range s. Colog uard is inten ded for color ectal cance r scree héctor of adult s of eithe r sex, 45 years or older , who are at [facility] for color ectal cance r (CRC) . Colog uard has been appro ana lilia for use by the U.S. FDA. The perfo rmanc e of Colog uard was estab lishe d in a cross secti onal study of [facility] adult s aged 50-84 . Colog uard perfo rmanc e in patie nts ages 45 to 49 years was estim ated by sub-g roup katherine sis of near- age group s. Colon oscop ies perfo rmed for a posit radha resul t may find as the most clini cornel signi ficleonardo t lesio n: color ectal cance r [4.0% ], advan albino adeno ma (incl uding sessi le kim karl polyp s great er than or equal to 1cm diame ter) [20%] or non- advan albino adeno ma [31%] ; or no color ectal neopl sandra [45%] . These estim ates are deriv ed from a prosp ectiv e cross -sect ional scree héctor study of 10,00 0 indiv idual s at [facility] risk for color ectal cance r who were scree rj with both Colog uard and colon oscop y. (Balaji Perry. et al, N Engl J Med 2014; 370(1 4):12 86-12 97.) Colog uard may produ ce a false negat radha or false posit radha resul t (no color ectal cance r or preca ncero us polyp prese nt at colon oscop y follo w up). A negat radha Colog uard test resul t does not guara ntee the absen ce of CRC or advan albino adeno ma (pre- cance r). The curre nt Colog uard scree héctor inter marco a is every 3 years . (Amer ican Cance r Socie ty and U.S. Multi -Soci ety Task Force ). Colog uard perfo rmanc e data in a 10,00 0 patie nt pivot al study using colon oscop y as the refer ence metho d can be acces sed at the follo wing locat ion: www.e xactl abs.c om/re chanell . Addit ional descr iptio n of the Colog uard test proce ss, warni ngs and preca ution s can be found at www.c ologu delonte.c om. Not Available [employer] (Cologuard Orders Only) [address], [place], [address], 01/12/2024 19:52:29 06/28/19 24 06/28/2023 US, abdom en, limit ed [facility] [address] [place] [address] Patien t Name: CAITLIN TERAN Access ion #: [id number] Sex: M : 1960 2 Dictat ed By: Lacho Mills ms Attend ing Physic tessa: REMA WINSTON Orderi ng Physic tessa: REMA WINTSON Exam Date: 2023 07:41 AM Exam Name: US ABDOME N SINGLE ORGAN Admitt ing Diagno sis(es ): INDICA TION: Elevat ed lfts TECHNI QUE: Multip le real-t yessenia sonogr aphic images were obtain ed of the right upper quadra nt. COMPAR CRISTAL: None. FINDIN GS: The liver is echoge sunitha with superi mposed puncta te foci of increa sed echoge nicity which may reflec t small calcif icatio ns. There is hepato pedal color dopple r flow in the main portal vein. There is no intrah epatic biliar y ductal dilata tion. The gallbl adder is withou t eviden ce of stone or sludge . The gallbl adder wall measur es 0.2 cm. The common bile duct measur es 0.3 cm. There is a negati ve sonogr aphic Jerome 's sign. The right kidney measur es 9.3 cm. The right kidney is echoge sunitha. The right kidney is normal in contou r. There is no hydron ephros is. The pancre as is not well visual ized due to overly ing bowel gas. Visual ized portio ns of the aorta and inferi or vena cava are unrema rkable . No eviden ce of ascite s. IMPRES GERA: 1. Fatty infilt ration of liver. 2. Small hepati c granul omas. 3. Echoge sunitha right kidney which may reflec t medica l renal diseas e in the approp riate settin g. No hydron ephros is. Page 1 [facility] [address] [place] [address] Patien t Name: CAITLIN TERAN [facility] ion #: [id number] Sex: M : 1960 2 Dictat ed By: Lacho Mills ms Attend ing Physic tessa: KATHLEEN ROBERTSON Orderi Physic tessa: REMA WINSTON Exam Date: 2023 07:41 AM Exam Name: US ABDOME N SINGLE ORGAN Admitt ing Diagno sis(es ): Electr onical ly Signed by: Lacho Mills ms at 2023 08:10: 55 AM Page 2 INTERFACE [facility] (Imaging) [address] [place], [address], 06/28/2023 09:12:04 06/28/19 24 06/28/2023 US, liver No observ ation record ed. [facility] [address] [place], [address], 06/28/2023 09:14:15 Result Notes None recorded. Problems Name Problem SNOMED Code Status Onset Date Resolution Date Notes Provider Name and Address Organization Details Recorded Time Ingrowing toenail 100596994 Active Not Available [facility] 3 07:10:14 Hemorrhoid s 98976241 Active Not Available [facility] 3 07:10:14 Hyperlipid emia 38240805 Active 2022 Not Available [facility] 3 07:10:14 Vitamin D deficiency 68583115 Active 2022 Not Available [facility] 3 07:10:14 Blood in urine 29039720 Active 2022 Not Available [facility] 3 07:10:14 Prediabete s 290415878 Active 2022 Not Available [facility] 3 07:10:14 Erectile dysfunctio n 189924214 Active 2022 Not Available [facility] 3 07:10:14 Testostero ne level below reference range 803631400 Active 2022 Not Available [facility] 3 07:10:14 Bilateral inguinal hernia 32839890 Active 2022 Not Available [facility] 3 07:10:14 Liver enzymes level above reference range 342331935 Active 2022 Not Available [facility] 3 07:10:14 Lesion of scalp 899808952603 Active 2022 Not Available [facility] 3 07:10:14 Skin lesion 50460888 Active 2022 Not Available [facility] 3 07:10:14 Seborrheic keratosis 270448066 Active 2022 Not Available [facility] 3 07:10:14 Disorder of bone and articular cartilage 018363629 Active 2023 Elma james MD [address], [place], [address] , [facility] 4 10:18:58 Hypertensi ve disorder 35244009 Active 2023 Elma james MD [address], [place], [address] , [facility] 4 10:18:58 Diabetes mellitus 52258581 Active 2023 Elma james MD [address], [place], [address] , [facility] 4 10:18:58 Vitamin D below reference range 185606892 Active 2023 Elma james MD [address], [place], [address] , [facility] 4 10:20:43 Primary erectile dysfunctio n 409132302 Active 2023 Elma james MD [address], [place], [address] , [facility] 4 10:21:22 Total bilirubin above reference range 1736117223757 08 Active 2023 SYLVIA Blue, [facility] 4 14:47:39 Albumin level - finding 040571467 Active 2023 SYLVIA Blue, [facility] 4 14:47:56 Proteinuri a 89003353 Active 2023 SYLVIA Blue, [facility] 4 14:48:14 Steatosis of liver 088488355 Active 2023 SYLVIA Blue, [facility] 4 14:37:36 Upper respirator y infection 26007266 Active 2023 Dahiana Salvador MA null, [facility] [employer] [facility] 4 15:02:56 COVID-19 156387295 Active 2023 Dahiana Salvador MA null, [facility] [employer] [facility] 4 17:31:34 Erythrocyt osis 779117136 Active 2023 Elma james MD [address] [facility], [facility] [address], [place], [address] , [facility] [employer] [facility] 4 17:32:30 Problem Notes None recorded. Procedures Surgical History Date Name Laterality Status Provider Name and Address Organization Details Recorded Time 4 Advanced Care Planning completed Juan Carlos Antunez LPN [facility] [employer] [facility] 12/21/2023 11:16:55 4 Medicare Wellness CPT Code, Initial completed Juan Carlos Antunez LPN [facility] [employer] [facility] 12/21/2023 08:20:19 3 Excision Cyst Multilayer completed Ramos Dover MD [address] [facility], [facility] [address], [place], [address], [facility] [employer] [facility] 01/12/2023 12:45:31 3 Hernia Surgery completed Not Available [facility] 06/03 00:52:23 other completed Not Available [facility] 04/2022 00:52:23 Imaging Results Imaging Date Name Status LastModified by Organiz ation Details LastModified Time 06/28/2023 US, abdomen, limited active INTERFACE [facility] (Imaging) [address] [place], [address], 06/28/2023 09:12:04 06/28/2023 US, liver active [facility] [address] [place], [address], 06/28/2023 09:14:15 Procedure Notes None recorded. Medical Equipment None Reported. Allergies No known drug allergies Medications Name Sig Start Date Stop Date Status Note LastModified by Organization Details LastModified Time amoxicillin 500 mg capsule TAKE 1 CAPSULE BY MOUTH THREE TIMES DAILY UNTIL GONE 06/18 completed Not Available Not Available Not Available Anusol-HC 2.5 % rectal cream with applicator Insert by rectal route. 10/21 completed Not Available Not Available Not Available aspirin 81 mg tablet,keyonna yed release Take 1 tablet every day by oral route. active Not Available Not Available No t Available sildenafil 100 mg tablet TAKE 1/2 TO 1 TABLET 30 TO 60 MINUTES PRIOR TO SEXUAL ACTIVITY, NO MORE THAN 1 TABLET IN A 24 HOUR PERIOD active Not Available Not Available No t Available oxycodone-a cetaminophe n 5 mg-325 mg tablet TAKE 1 TABLET BY MOUTH EVERY 4 TO 6 HOURS NEEDED 06/18 completed Not Available Not Available Not Available Proctozone- HC 2.5 % topical cream perineal applicator 10/21 completed Not Available Not Available Not Available cephalexin 500 mg capsule Take 1 capsule every 12 hours by oral route. 10/21 completed Not Available Not Available Not Available ergocalcife rol (vitamin D2) 1,250 mcg (50,000 unit) capsule TK 1 C PO Q WEEK FOR 12 WKS active Not Available Not Available No t Available clobetasol 0.05 % scalp solution APPLY TOPICALLY TO THE AFFECTED AREA OF SCALP TWICE DAILY IN THE MORNING AND EVENING NEEDED active Not Available Not Available No t Available amoxicillin 875 mg-potassiu m clavulanate 125 mg tablet TAKE 1 TABLET BY MOUTH EVERY 12 HOURS UNTIL ALL TAKEN 12/20 completed Not Available Not Available Not Available rosuvastati n 20 mg tablet TAKE 1 TABLET BY MOUTH EVERY DAY active Not Available Not Available No t Available Vitamin D3 2020 active Not Available Not Available Not Avai lable Paxlovid 300 mg (150 mg x 2)-100 mg tablets in a dose pack FOLLOW PACKAGE DIRECTION S 12/20 completed Not Available Not Available Not Available Vitals Date Recorded Body height Body mass index (BMI) Body weight Body temperature Heart rate Oxygen saturation Oxygen saturation in Arterial blood by Pulse oximetry Systolic blood pressure Diastolic blood pressure Provider Name and Address Organization Details Last Updated DateTime 3 170.18 cm 22.6 kg/m2 38366.3 g 97.8 [degF] 68 /min 99 % 99 % 118 mm[Hg] 78 mm[Hg] Cesame Winters [facility] [employer] [facility] 3 12:19:17 Date Recorded Body height Body mass index (BMI) Body weight Body temperature Heart rate Respiratory rate Oxygen saturation Oxygen saturation in Arterial blood by Pulse oximetry Systolic blood pressure Diastolic blood pressure Provider Name and Address Organization Details Last Updated DateTime 3 170.18 cm 22.6 kg/m2 25374.3 g 97.8 [degF] 68 /min 16 /min 99 % 99 % 118 mm[Hg] 78 mm[Hg] Polly Iam [facility] [employer] [facility] 3 10:22:18 Date Recorded Body height Body mass index (BMI) Body weight Body temperature Heart rate Systolic blood pressure Diastolic blood pressure Provider Name and Address Organization Details Last Updated DateTime 4 170.18 cm 22.1 kg/m2 80244.5 2 g 97.5 [degF] 60 /min 110 mm[Hg] 62 mm[Hg] Shirley Vanegas [facility] [employer] [facility] 4 10:27:25 Date Recorded Body height Body mass index (BMI) Body weight Body temperature Heart rate Respiratory rate Oxygen saturation Oxygen saturation in Arterial blood by Pulse oximetry Pain severity - 0-10 verbal numeric rating [Score] - Reported Systolic blood pressure Diastolic blood pressure Provider Name and Address Organization Details Last Updated DateTime 4 170.18 cm 23.2 kg/m2 08996.6 7 g 97.8 [degF] 74 /min 16 /min 96 % 96 % 0 112 mm[Hg] 64 mm[Hg] Juan Carlos Antunez LPN [facility] [employer] [facility] 4 10:38:01 Date Recorded Body height Body mass index (BMI) Body weight Body temperature Heart rate Oxygen saturation Oxygen saturation in Arterial blood by Pulse oximetry Pain severity - 0-10 verbal numeric rating [Score] - Reported Systolic blood pressure Diastolic blood pressure Provider Name and Address Organization Details Last Updated DateTime 5 170.18 cm 22.9 kg/m2 77288.4 9 g 97.4 [degF] 69 /min 99 % 99 % 0 126 mm[Hg] 66 mm[Hg] Morena Girard MA [facility] [place] [employer] 5 10:29:58 Social History Question Answer Notes LastModified by Organization Details LastModified Time Tobacco Smoking Status Never Smoker Not Available [facility] 06/03/2022 00:49:04 Do You Have An Advance Directive? No MIGRATION.0301 [id number] Information not available 06/03/2022 What Is Your Level Of Alcohol Consumption? Occasional MIGRATION.0301 [id number] Information not available 06/03/2022 How Many Years Have You Consumed Alcohol? 40 [email or web address] Information not available 12/21/2023 Do You Wear A Helmet When Biking? No Does Not Bike [email or web address] Information not available 12/21/2023 Are You Blind Or Do You Have Difficulty Seeing? No Information not available 06/10/2023 Is Blood Transfusion Acceptable In An Emergency? Yes Information not available 12/21/2023 What Is Your Level Of Caffeine Consumption? Moderate MIGRATION.0301 [id number] Information not available 06/03/2022 How Much Tobacco Do You Chew? None MIGRATION.030 297932 Information not available 06/03/2022 In The 14 Days Before Symptom Onset, Have You Had Close Contact With A Laboratory-confi rmed COVID-19 While That Case Was Ill? No MIGRATION.0301 [id number] Information not available 06/03/2022 In The 14 Days Before Symptom Onset, Have You Had Close Contact With A Person Who Is Under Investigation For COVID-19 While That Person Was Ill? No MIGRATION.0301 255435 Information not available 06/03/2022 Are You Currently Employed? No [email or web address] Information not available 12/21/2023 Are You Deaf Or Do You Have Serious Difficulty Hearing? No Information not available 06/10/2023 What Type Of Diet Are You Following? REGULAR MIGRATION.0301 399999 Information not available 06/03/2022 Which Illicit Or Recreational Drugs Have You Used? None MIGRATION.0301 680814 Information not available 06/03/2022 Do You Or Have You Ever Used E-cigarettes Or Vape? Never Used Electronic Cigarettes MIGRATION.0301 913849 Information not available 06/03/2022 What Is The Highest Grade Or Level Of School You Have Completed Or The Highest Degree You Have Received? [id number] [email or web address] Information not available 12/21/2023 What Is Your Occupation? RETIRED [email or web address] Information not available 12/21/2023 How Many Days Of Moderate To Strenuous Exercise, Like A Brisk Walk, Did You Do In The Last 7 Days? 0 Active Life [email or web address] Information not available 12/21/2023 Have There Been Any Changes To Your Family Or Social Situation? No MIGRATION.0301 827179 Information not available 06/03/2022 What Is The Fluoride Status Of Your Home? Unknown MIGRATION.0301 729542 Information not available 06/03/2022 Are There Any Guns Present In Your Home? No MIGRATION.0301 319235 Information not available 06/03/2022 Do You Use Insect Repellent Routinely? No MIGRATION.0301 984293 Information not available 06/03/2022 Where Do You Live? SingleLevelHouse MIGRATION.0301 357662 Information not available 06/03/2022 Presence Of Domestic Violence No [email or web address] Information not available 12/21/2023 Guns Present In The Home? No [email or web address] Information not available 12/21/2023 Are You Able To Care For Yourself? Yes [email or web address] Information not available 12/21/2023 Are You Blind Or Do Yo Have Difficulty Seeing? No [email or web address] Information not available 12/21/2023 Are You Deaf Or Do You Have Serious Difficulty Hearing? No Information not available 12/21/2023 General Stress Level? Low [email or web address] Information not available 12/21/2023 Live Alone Of With Others? With Others Information not available 12/21/2023 Do You Have A Medical Power Of Sexual Assault Response Coordinator? No Information not available 06/10/2023 What Was The Date Of Your Most Recent Tobacco Screening? 04/25/2024 [email or web address] Information not available 04/25/2024 Have You Ever Been Counseled For Unhealthy Alcohol Use? No [email or web address] Information not available 12/21/2023 Do You Have Any Pets? No MIGRATION.0301 600531 Information not available 06/03/2022 Do You Use Protection During Sex? No Information not available 12/21/2023 What Is Your Relationship Status? Information not available 06/10/2023 Do You Use Your Seat Belt Or Car Seat Routinely? Yes MIGRATION.0301 [id number] Information not available 06/03/2022 Are You Sexually Active? Yes [email or web address] Information not available 12/21/2023 Do You Have Smoke And Carbon Monoxide Detectors In Your Home? Yes MIGRATION.0301 485447 Information not available 06/03/2022 Are You Passively Exposed To Smoke? No MIGRATION.0301 463916 Information not available 06/03/2022 Do You Or Have You Ever Used Smokeless Tobacco? Never Used Smokeless Tobacco MIGRATION.0301 977901 Information not available 06/03/2022 Are There Any Smokers In Your House? No MIGRATION.0301 397557 Information not available 06/03/2022 How Much Tobacco Do You Smoke? No MIGRATION.0301 277909 Information not available 06/03/2022 What Types Of Sporting Activities Do You Participate In? None [email or web address] Information not available 12/21/2023 Do You Feel Stressed (tense, Restless, Nervous, Or Anxious, Or Unable To Sleep At Night)? [id number] MIGRATION.030 976645 Information not available 06/03/2022 Do You Use Any Illicit Or Recreational Drugs? No MIGRATION.0301 953681 Information not available 06/03/2022 Do You Use Sunscreen Routinely? No MIGRATION.0301 834561 Information not available 06/03/2022 Has Tobacco Cessation Counseling Been Provided? No N/A [email or web address] Information not available 12/21/2023 Have You Recently Traveled Abroad? No MIGRATION.0301 861241 Information not available 06/03/2022 Do You Have Any Dietary Restrictions? No MIGRATION.030 180935 Information not available 06/03/2022 Do You Or Have You Ever Used Any Other Forms Of Tobacco Or Nicotine? No Information not available 06/10/2023 How Many Days In The Past Year Have You Consumed 5 Or More Drinks? -1 [email or web address] Information not available 12/21/2023 Sex: Male Functional Status Question Answer Note LastModified by Organizat ion Details LastModified Time Do you have difficulty walking or climbing stairs? No Information not available 06/10/2023 Do you have transportation difficulties? No Information not available 06/10/2023 Are you able to walk? [email or web address] Information not available 06/10/2023 Do you have difficulty doing errands alone? No Information not available 06/10/2023 Are you able to care for yourself? Yes Information not available 06/10/2023 Do you have difficulty dressing or bathing? No Information not available 06/10/2023 What is your exercise level? None [email or web address] Information not available 12/21/2023 Mental Status Question Answer Note LastModified by Organization D etails LastModified Time Do you have difficulty concentrating, remembering or making decisions? No Information no t available 06/10/2023 Family History Relationship Description Onset Age of this Age Resolved Age Notes LastModified by Organization Details LastModified Time Mother Alzheimer's disease MIGRATION.605 [id number] Not available 06/03/2022 00:52:26 Mother Diabetes mellitus MIGRATION.607 [id number] Not available 06/03/2022 00:52:26 Medical History Condition Response NERVE DISEASE N BLINDNESS N RHEUMATIC FEVER N KIDNEY STONES N BLADDER PROBLEMS N OTHER # 1 N POLIO N LUNG DISEASE/DISORDER N RADIATION / CHEMOTHERAPY N COPD N Other # 2 N BLOOD DISEASES N SURGERY N EAR OR HEARING PROBLEMS N MUMPS N DEPRESSION (INCLUDING POST ) N BOWEL PROBLEMS Y STROKE/TIA N ULCERS N BENIGN PROSTATIC HYPERPLASIA N MEASLES N MYOCARDIAL INFARCTION N OBESITY N GERD/NAUSEA N ANEURYSM N URINARY/BLADDER/KIDNEY PROBLEMS N INPATIENT PSYCH CARE N CORONARY ARTERY DISEASE (CAD) N ADDICTION CONCERNS N Impotence N ENDOMETRIOSIS N USE OF BLOOD THINNERS N SKIN PROBLEMS N GASTROINTESTINAL DISORDER N PERIPHERAL VASCULAR DISEASE N MUSCLE,JOINT OR BONE PROBLEMS N GASTROINTESTINAL BLEEDING N BLOOD CLOTS N ASTHMA N CATARACTS N ERECTILE DYSFUNCTION N VARICOSITIES N GI PROBLEMS N Low Testosterone N INFERTILITY N AIDS/HIV N LIVER DISEASE N MALE HYPOGONADISM N HYPERTENSION N Deficiency N ANXIETY DISORDER N BLOOD TRANSFUSION N ANEMIA/BLOOD DISORDER N CHRONIC EAR INFECTIONS N BRONCHITIS N TUBERCULOSIS N GLAUCOMA N DIVERTICULITIS N SLEEP APNEA N CHICKENPOX N INFECTIOUS DISEASE N PROSTATE N HEART ARRHYTHMIA N INSOMNIA N HIGH CHOLESTEROL / HYPERLIPIDEMIA Y HYPERTHYROIDISM N EYE PROBLEMS N NEUROLOGICAL PROBLEMS N EDEMA N CHRONIC PAIN SYNDROME N HYPOTHYROIDISM N CONSTIPATION N CAROTID BLOCKAGE N BACK / NECK PROBLEMS N ATHEROSCLEROSIS N BREAST PROBLEMS N DIALYSIS N ECZEMA N OSTEOPOROSIS N ARTHRITIS N APPENDICITIS N DIABETES, TYPE N BAD TEETH N ENT N HEARTBURN / REFLUX N AUTISM SPECTRUM DISORDER (ASD) N HEPATITIS / LIVER DISEASE N PULMONARY DISEASE N GOUT N SLEEP DISORDER N ALZHEIMER'S DISEASE N Brain Problems N HERPES N DEMENTIA N SEIZURES/EPILEPSY N HEADACHES/MIGRAINES N VASCULAR DISEASE N PACEMAKER N Blood Disorder N DIZZINESS N KIDNEY DISEASE N HEART DISEASE/HEART PROBLEMS N MULTIPLE SCLEROSIS N CARDIAC ARRHYTHMIA N CANCER: SPECIFY N ANESTHESIA COMPLICATIONS N Gall Stones N ATRIAL FIBRILLATION N PULMONARY EMBOLISM N AUTOIMMUNE DISEASE N Immunizations Vaccine Type Date Status Note Provider Nam e and Address Organization Details Recorded Time SARS-COV-2 (COVID-19) vaccine, UNSPECIFIED 10/10/2020 completed BREA Cordon, [employer] 12/17/2023 14:15:42 SARS-COV-2 (COVID-19) vaccine, UNSPECIFIED 09/16/2020 completed BREA Cordon [employer] 12/17/2023 14:15:42 Past Encounters Encounter ID Performer Location Encounter Start Date Encounter Closed Date Diagnosis/Indication Diagnosis SNOMED-CT Code Diagnosis ICD10 Code Diagnosis Note [id number] [facility] Internal Med [facility] [address] [place], [place] [address]., [address] [address] 06/04/2020 00:00:00 06/04/2020 11:10:34 [id number] [facility] Internal Med [facility] [address] [place], [place] [address] [address] [address] 12/10/2020 00:00:00 12/10/2020 10:56:13 [id number] [facility] Internal Med [facility] [address] [place], [place] [address] [address] [address] 06/10/2021 00:00:00 06/10/2021 10:19:37 [id number] [facility] Internal Med [facility] [address] [place], [place] [address] [address] [address] 1 12/18/2021 00:00:00 12/18/2021 10:21:23 [id number] [facility] General Surgery [address] [place], [place] [address]., [address] [address] 01/01/2022 00:00:00 01/01/2022 15:48:08 [id number] [facility] General Surgery [address] [place] [address] Ave[address] [address] 03/10/2022 00:00:00 03/10/2022 15:32:31 [id number] [facility] [address] [facility] [address] [address] 04/21/2022 00:00:00 04/21/2022 12:25:22 [id number] DANY Saldaña [facility] Internal Med [facility] [address] [facility] [address] [address] 06/18/2022 09:49:46 06/18/2022 10:24:11 Hyperlipidemia 50937127 E78.5 on rosuvastat in Vitamin D deficiency 347 69507 E55.9 on OTC supplement Blood in urine 28120056 R31.9 following urology up in [facility] d Prediabetes 144077141 R7 3.03 diet/exerc ise, no meds Erectile dysfunction 860 600044 F52.21 check testostero ne levelstart sildenafil , he is aware of side effects, risks, benefitsto ER if any erection that will not go away Testostero ne level below reference range 364448216 R79.89 Had previously declined urology referralWi ll recheck labs Screening for malignant neoplasm of prostate 196791234 Z12.5 patient is over 50 years of age Bilateral inguinal hernia 73412799 K40.20 s/p repair with GS- Dr. Claudette lee will call to get him an appt today to have the surgeon check out his symptomsER precaution s- worsening pain/fever or chills/dra diaz Depression screening 171 413187 Z13.31 [id number] Ramos garcia MD [facility] General Surgery [address] [facility] [address] [address] 06/18/2022 10:27:17 06/18/2022 11:23:44 [id number] DANY Saldaña [facility] Internal Med [facility] [address] [place] [address] 12/17/2022 09:47:59 12/17/2022 10:14:51 Hyperlipidemia 15664583 E78.5 on rosuvastat in Vitamin D deficiency 347 21616 E55.9 on OTC supplement Blood in urine 62254818 R31.9 following urology up in [facility] d Prediabetes 393600191 R7 3.03 diet/exerc ise, no meds Erectile dysfunction 860 360068 F52.21 on sildenafil , he is aware of side effects, risks, benefitsto ER if any erection that will not go away Screening for malignant neoplasm of prostate 866345309 Z12.5 patient is over 48 years of age Bilateral inguinal hernia 88490493 K40.20 s/p repair with GS- Dr. Claudette garcia Lesion of scalp 93749906 91 00 L98.9 I have advised patient that I think this may be a precancer a cancerI gave him the option of either going over to Dermatolog y at [facility] (the only derm which will take his insurance) or seeing General surgery upstairs. He would like to see General surgery and see if they can remove it for himSunscre en recommenda tions discussed [id number] Ramos garcia MD [facility] General Surgery [address] [place] [address] 1 12/31/2022 11:51:40 12/31/2022 14:27:33 Lesion of scalp 4028335705 00 L98.9 [id number] Ramos garcia MD [facility] General Surgery [address] [place] [address] 1 01/12/2023 11:58:18 01/12/2023 17:10:41 Skin lesion 17397909 L98.9 scalp [id number] Ramos garcia MD [facility] General Surgery [address] [place] [address] 1 01/28/2023 10:19:17 01/28/2023 14:56:31 Seborrheic keratosis 911447836 L82.1 scalp Removal of suture 567845 01 Z48.02 [id number] Elma james MD [facility] Internal Med [address] [place] [address] 1 06/10/2023 10:14:12 06/10/2023 10:43:08 Screening - NAD 470585503 Z13.9 C-scope: Next in 12/2023 cologuard Get yearly flu shot, get tdap if not doneGet PCV #20Get shingrixGe t COVID 19 vaccine, and its boostersCa n do RSV vaccine RTC in 6 months, do labs, ER if worse, he did verbalize his understand ing of the above Hyperlipidemia 09025206 E78.5 On rosuvastat in 20mg dailyGet labs Vitamin D deficiency 347 82286 E55.9 Prediabetes 805624408 R7 3.03 Get labs Primary er ectile dysfunction 157791058 N52.9 On sildenafil 100mg 1/2 to 1 tablet as needed Blood in urine 41666355 R31.9 Seen by a urologist in [facility], 2-3 years ago, he cannot recall when or the name of the urologist, he denies any complaints , will get a UA done [id number] Elma james MD [facility] Internal Med [address] [facility], [facility] [address] [place] [address] 12/21/2023 10:20:11 12/21/2023 11:10:17 Screening - NAD 795279779 Z13.9 C-scope: Next in 12/2023 cologuard Get yearly flu shot, get tdap if not doneGet PCV #20Get shingrixGe t COVID 19 vaccine, and its boostersCa n do RSV vaccineHe has declined to get any vaccines 12/21/2023 RTC in 4 months, do labs, ER if worse, he did verbalize his understand ing of the above Hyperlipidemia 56379913 E78.5 On rosuvastat in 20mg dailyGet labs Vitamin D deficiency 347 44621 E55.9 Prediabetes 563308076 R7 3.03 Get labs Primary er ectile dysfunction 459910013 N52.9 On sildenafil 100mg 1/2 to 1 tablet as needed Blood in urine 04783516 R31.9 Seen by a urologist in [facility], 2-3 years ago, he cannot recall when or the name of the urologist, he denies any complaints , will get a UA done OV 12/21/2023 : No more symptoms of hematuria or dysuria COVID-19 666098075 U07.1 +ve 09/21/2023 S/p paxlovid Erythrocytosis 962908779 D75.1 Dr Mitchell 11/03/2023 , next in 6 months Adult heal th examination 956899177 Z00.00 Screening for disorder 531072984 Z13.9 Screening for malignant neoplasm of colon 807605251 Z12.11 [id number] Elma james MD [facility] Internal Med [address] [facility], [address] [place] [address] 04/25/2024 10:21:40 04/25/2024 11:16:29 Screening - NAD 993855418 Z13.9 01/07/2204 : Cologuard Neg Get yearly flu shot, get tdap if not doneGet PCV #20Get shingrixGe t COVID 19 vaccine, and its boostersCa n do RSV vaccineHe has declined to get any vaccines 12/21/2023 RTC in 4 months, do labs, ER if worse, he did verbalize his understand ing of the above Hyperlipidemia 64861025 E78.5 On rosuvastat in 20mg dailyGet labs Vitamin D deficiency 347 79536 E55.9 Prediabetes 369381305 R7 3.03 Get labsCan do metformin, declined, 04/25/2024 , he was eating sugary treats, will diet and exerciseNe eds to see eye and foot Primary er ectile dysfunction 690520946 N52.9 On sildenafil 100mg 1/2 to 1 tablet as needed Blood in urine 80105280 R31.9 Seen by a urologist in [facility], 2-3 years ago, he cannot recall when or the name of the urologist, he denies any complaints , will get a UA done OV 12/21/2023 : No more symptoms of hematuria or dysuria COVID-19 304887221 U07.1 +ve 09/21/2023 S/p paxlovid Erythrocytosis 188482985 D75.1 Dr Mitchell 11/03/2023 , next in 6 months Health Concerns Section Related Observation LastModified by Organization Detai ls LastModified Time None Recorded Concern Status LastModified by Organization Details LastModified Time None Recorded Advance Directives Directive N: Payers Encounter Date Sequence Insurance Name Policy Number Policy Heard Covered Member ID Heard Member ID Guarantor Name 01/12/2023 1 [facility] ON OR AFTER 10/03/20 (MEDICAID REPLACEMENT - HMO) Caitlin Teran [id number] Caitlin Teran 01/28/2023 1 [facility] ON OR AFTER 10/03/20 (MEDICAID REPLACEMENT - HMO) Caitlin Teran [id number] Caitlin Teran 06/10/2023 1 [facility] (MEDICARE REPLACEMENT/AD VANTAGE - HMO) [id number] Caitlin Teran [id number] Caitlin Teran 12/21/2023 1 [facility] (MEDICARE REPLACEMENT/AD VANTAGE - HMO) [id number] Caitlin Teran [id number] Caitlin Teran 04/25/2024 1 [facility] (MEDICARE REPLACEMENT/AD VANTAGE - HMO) [id number] Caitlin Teran [id number] Caitlin Teran Notes Date Note Type Note Provider Name and Address Organization Details Recorded Time 01/12/2023 text/html Here for excisio n of painful spot on his scalp that he has had all summer. We will not go away. Tender to touch and when combing hair. Denies any drainage Ramos Dover MD [address], [place] [address], [place], [address], [employer] 01/14/2023 13:07:09 01/28/2023 text/html No complaints Ramos Dover MD [address], [place], [address], [employer] 01/28/2023 12:29:16 06/10/2023 text/html OV 06/10/2023: Here to establish care Past Hx:[email or web address] a To discuss above and get labs Elma Banks MD [address], [place], [address], [employer] 06/10/2023 15:51:25 12/21/2023 text/html OV 06/10/2023: Here to establish care Past Hx:Ramone Bennett discuss above and get labs OV 12/21/2023: Here for his f/u apt, he is doing well, he is here for his MWV Elma Banks MD [address], [place], [address], [employer] [facility] [employer] [facility] 12/21/2023 17:31:00 04/25/2024 text/html OV 06/10/2023: Here to establish care Past Hx:Ramone Bennett discuss above and get labs OV 12/21/2023: Here for his f/u apt, he is doing well, he is here for his MWV OV 04/25/2023: Here for his f/u apt, he feels well today, he did do the labs Elma Banks MD [address], [place], [address], [employer] [facility] 04/25/2024 11:00:49
--- OUTSIDE RECORDS SUMMARY | 2024-05-09 15:21 | XMS_ITS | CONTINUITY OF CARE DOCUMENT ---
Author Name blane arguelles Address Unknown Organization [facility] Office Address [address] [place] [address] [address] [place] [address] Phone [phone] Care Team Providers Care Skatesman Name Role Phone Mallika Pelletier MD Unavailable [phone] Mallika Pelletier MD Unavailable [phone] INSURANCE PROVIDERS Payer name Policy type / Coverage type [place] [employer] [facility] Medicaid [id number]
[2024-05-09 15:28] LABS: Hematocrit 47.5 % (42.0-52.0); Hemoglobin 16.2 g/dL (14.0-18.0); Mean Corpuscular HGB Conc 34.1 g/dl (32-36); Mean Corpuscular Hemoglobin 31.5 pg (26-34); Mean Corpuscular Volume 92.4 fl (80-100); Mean Platelet Volume 8.9 fl (7.4-10.4); Platelet Count Result 239 k/mm3 (150-375); Red Blood Count 5.14 M/mm3 (4.6-6.20); Red Cell Distribution Width 12.1 % (11.5-14.5); White Blood Count 8.1 K/mm3 (4.5-10.0)
[2024-05-09 15:48] LABS: Carbon Dioxide 27 mmol/L (22-30); Chloride 103 mmol/L (98-109); Potassium 3.7 mmol/L (3.5-4.9); Sodium 140 mmol/L (138-146)
[2024-05-09 15:49] LABS: Blood Urea Nitrogen 22 mg/dL (8-26); Estimated Glomerular Filt Rate > 60; Glucose 87 mg/dL (70-105)
[2024-05-09 15:51] LABS: Ionized Calcium (POC) 1.18 mmol/L (1.11-1.31)
== END 2024-05-09 15:17 | disposition home or self-care (01) ==
LOC: ANHLAB 15:17
PROVIDERS: PCP Internal Medicine; Visit Provider Internal Medicine Hematology & Oncology
DX: D75.1 Secondary polycythemia (principal)
CPT/HCPCS: 36415; 80047; 85027

== ENCOUNTER 2025-02-12 07:34 | Outpatient (CLI) | payer MEDICARE, SELFPAY ==
--- NOTE | ~2025-02-12 | US_ITS ---
ULTRASOUND ABDOMEN LIMITED (RIGHT UPPER QUADRANT) Clinical History: Fatty liver Comparison: None Technique: Right upper quadrant sonography Findings: Liver: Normal size. Mildly echogenic. No intrahepatic biliary ductal dilatation. Normal hepatopedal flow main portal vein. Small hyperechoic focus segment 7 most consistent with hemangioma. Common Duct: Normal caliber. 3 mm. Gallbladder: No stones. No wall thickening. No pericholecystic fluid. Pancreas: Unremarkable. Right kidney: Unremarkable. Retrohepatic IVC: Unremarkable. IMPRESSION: 1. Mild hepatic steatosis and/or hepatocellular disease. Reviewed, dictated and finalized at location R. CHIEF
== END 2025-02-12 07:35 | disposition home or self-care (01) ==
LOC: MICIMG 07:34
PROVIDERS: PCP Internal Medicine; Visit Provider Internal Medicine
DX: K76.0 Fatty (change of) liver, not elsewhere classified (principal); K76.9 Liver disease, unspecified
CPT/HCPCS: 76705